=== PATIENT | female | born 1950 | race Caucasian/White ===

== ENCOUNTER 2016-05-23 05:52 | Day surgery (SDC) | payer OTHER ==
[2016-05-23] MEDS ORDERED: ceFAZolin 2 GM/DEXTROSE 100 ML IV ONE (06:00)
[2016-05-23] MEDS ORDERED: LIDOCAINE 1% 5 ML SDV ONE (06:07)
[2016-05-23] MEDS ORDERED: LIDOCAINE 1% 5 ML SDV ID PRN (06:31)
[2016-05-23] MEDS ORDERED: LR 1,000 ML IV ONE (06:31)
[2016-05-23] MEDS ORDERED: SKIN ADHESIVE (DERMABOND) 1 EACH TP ONE (07:11)
[2016-05-23] MEDS ORDERED: BUPIVACAINE 0.5% 30 ML SDV ONE (07:11)
[2016-05-23] MEDS ORDERED: ROCURONIUM 50 MG/5 ML VIAL ONE (07:21)
[2016-05-23] MEDS ORDERED: ONDANSETRON 4 MG/2 ML VIAL ONE (07:21)
[2016-05-23] MEDS ORDERED: LIDOCAINE 2% 100 MG/5 ML SYR IVP ONE (07:21)
[2016-05-23] MEDS ORDERED: fentaNYL 100 MCG/2 ML INJ ONE (07:22)
[2016-05-23] MEDS ORDERED: PROPOFOL 200 MG/20 ML VIAL ONE ×2 (07:22)
[2016-05-23] MEDS ORDERED: MIDAZOLAM 2 MG/2 ML VIAL ONE (07:26)
--- NOTE | 2016-05-23 10:13 | DX ---
Portable chest x-ray 0920 hours. History: Invasive ductal carcinoma left breast. Central port placement. Findings: Central vascular port is seen from right IJ approach with tip in the SVC. There is no pneum othorax. There is some gas in the supraclavicular soft tissues on the right. No significant soft tiss ue swelling is appreciated. There is no pneumothorax. Subsegmental atelectasis is suspected involving both lung bases. The mid and upper lungs are clear. There are no effusions or pulmonary nodules iden tified. Osseous structures appear to be intact. Impression: 1. Central vascular port placed with tip in good position. No pneumothorax. 2. Subcutaneous gas right supraclavicular region. 3. Bibasilar subsegmental atelectasis.
[2016-05-23] MEDS ORDERED: HYDROCODONE/APAP 5/325 TAB ONE (10:19)
--- NOTE | 2016-05-23 15:24 | DX ---
Fluoroscopy, Greater Than One Hour Indication: Port placement. Fluoroscopy time: 27.8 seconds. Dose: 5.1 mGy. Findings: Two spot fluoroscopic images show a right-sided port with the tip at the SVC right atrial j unction. Overlying curvilinear structures likely on the patient and was not on the follow up film. Impression: Fluoroscopy provided for port placement.
--- NOTE | 2016-05-23 16:33 | GOP ---
[f rep st] OPERATIVE REPORT DATE OF OPERATION: 05/23/2016 SURGEON: Amanda Duarte MD ANESTHESIA: General. ANESTHESIOLOGIST: Theo Vaughn MD PREOPERATIVE DIAGNOSIS: Left breast cancer. POSTOPERATIVE DIAGNOSIS: Left breast cancer. PROCEDURE PERFORMED: Right ultrasound-guided internal jugular PowerPort placement. FINDINGS: SPECIMENS: None. ESTIMATED BLOOD LOSS: 20 cc. INDICATIONS: The patient is a 65-year-old woman with HER-2/mimi positive breast cancer. She requires a port for chemotherapy. DESCRIPTION OF PROCEDURE: The patient was brought into the operating room, placed supine on the table, and general anesthesia was administered. Her bilateral neck and chest were prepped and draped in the usual sterile fashion. I infiltrated the chest with 10 cc of 0.5% Marcaine. She was placed in the Trendelenburg position. I tried to access the subclavian vein 3 times and was not successful. I then infiltrated her neck with 0.5% Marcaine. Under ultrasound guidance, I accessed the internal jugular vein with dark return of blood flow. I threaded the guidewire and removed the needle. There were PVCs. I created a pocket to accommodate the port in the left chest. I tunneled the catheter up to the insertion site. Under fluoroscopy, I measured the catheter and cut it to size. I placed a dilator and sheath over the wire. I removed the dilator and there was arterial flow. I immediately removed the dilator and I held pressure for 5 minutes. I removed the port. I took an x-ray and there did not appear to be hemothorax. She was hemodynamically stable. I performed an ultrasound on her left neck and the internal jugular vein was directly anterior to the carotid. On the right neck, there was a slight separation. I called my partner in to confirm the anatomy as it appeared I was in the internal jugular vein with the wire placement, but then had difficulty with the dilator. I again accessed the internal jugular vein under ultrasound guidance. I threaded the guidewire under fluoroscopy. The guidewire passed into the IVC. I tunneled the port up to the insertion site and under fluoroscopy cut it to size. Under fluoroscopy, I placed the dilator and sheath over the wire and removed the wire and the dilator. I threaded the catheter through the sheath. Placement was confirmed with fluoroscopy. The port withdrew blood easily and was flushed with 5 cc of heparin. The pocket was closed with 3-0 Vicryl, followed by 4-0 Monocryl. The incision on the neck was closed with 4-0 Monocryl. Dermabond applied. She was awakened in the operating room, extubated , transferred to PACU in stable condition. /[id number]/MODL MTDD
== END 2016-05-23 10:45 | disposition home or self-care (01) ==
LOC: FSGY 05:52
PROVIDERS: ATTEND Surgery
DX: C50.812 Malignant neoplasm of overlapping sites of left female breast (principal); Z17.0 Estrogen receptor positive status [ER+]
CPT/HCPCS: C1788; J0690; J2001; J2250; J2405; J2704; J3010

== ENCOUNTER → 2017-03-21 | Outpatient (CLI) | payer OTHER | LOC: FIMAGING 13:25 | PROVIDERS: ATTEND Internal Medicine Hematology & Oncology | DX: Z12.31 Encounter for screening mammogram for malignant neoplasm of breast (principal) | CPT/HCPCS: G0202 ==

== ENCOUNTER → 2017-04-10 | Outpatient (CLI) | payer OTHER | LOC: FIMAGING 14:45 | PROVIDERS: ATTEND Internal Medicine Hematology & Oncology | DX: Z13.820 Encounter for screening for osteoporosis (principal); M85.80 Other specified disorders of bone density and structure, unspecified site; C50.412 Malignant neoplasm of upper-outer quadrant of left female breast; Z78.0 Asymptomatic menopausal state ==

== ENCOUNTER → 2018-03-25 | Outpatient (CLI) | payer OTHER, MEDICARE | LOC: FIMAGING 12:03 | PROVIDERS: ATTEND Internal Medicine Hematology & Oncology | DX: Z12.31 Encounter for screening mammogram for malignant neoplasm of breast (principal); Z85.3 Personal history of malignant neoplasm of breast ==